=== PATIENT | male | born 1970 | race Caucasian/White ===

== ENCOUNTER 2016-12-14 12:33 | Emergency (ER) | payer OTHER ==
[~2016-12-14] VITALS: Ht 182.9 cm; Wt 65.5 kg
[~2016-12-14 12:33] MED LIST: ALLERGY25 M2 PO; ANTACID650 MG PO; ASPIR 8181 M1 PO; ASPIRIN325 MG PO; CLONIDINE HCL0.1 MG PO; DIAZEPAM5 MG PO; DILANTIN100 MG PO; FOLBEE PLUS TABL5 MG PO; KEPPRA500 MG PO; Keppra PO; LABETALOL HCL200 MG PO; LEXAPRO10 MG PO; LIPITOR20 MG PO; LOPID600 MG PO; NEXIUM40 MG PO; NORCO 5/3251 TABLET PO; PRILOSEC20 MG PO; PROTONIX40 MG PO; SODIUM BICARBO325 M1 PO; ULTRAM50 MG PO; VITAMIN D400 INTUNI PO; Vicodin,Lortab 5/500 PO; Vitamin B-12 PO
[2016-12-14 15:50] VITALS: BP 126/79
== END 2016-12-14 16:15 | disposition home or self-care (01) ==
LOC: EME 12:33
PROC: 05LY0ZZ Occlusion of Upper Vein, Open Approach (ICD-10-PCS; principal; 2016-12-14)
DX: T82.838A Hemorrhage due to vascular prosthetic devices, implants and grafts, initial encounter (principal); Y83.2 Surgical operation with anastomosis, bypass or graft as the cause of abnormal reaction of the patient, or of later complication, without mention of misadventure at the time of the procedure; N18.6 End stage renal disease; Z99.2 Dependence on renal dialysis; Z86.73 Personal history of transient ischemic attack (TIA), and cerebral infarction without residual deficits; R56.9 Unspecified convulsions; Z87.891 Personal history of nicotine dependence
CPT/HCPCS: 99281; 99284

== ENCOUNTER 2016-12-22 07:27 | Day surgery (SDC) | payer OTHER ==
[2016-12-22 09:07] LABS: METH RESISTANT S AUREUS PCR NEGATIVE (NEGATIVE)
[2016-12-22 09:11] LABS: PROBE CHECK PASS; SPECIMEN PROCESSING CONTROL PASS
== END 2016-12-22 10:35 | disposition home or self-care (01) ==
LOC: CATH 07:27
PROVIDERS: Surgery
PROC: 057Y3ZZ Dilation of Upper Vein, Percutaneous Approach (ICD-10-PCS; principal; 2016-12-22)
PROC: 3E03317 Introduction of Other Thrombolytic into Peripheral Vein, Percutaneous Approach (ICD-10-PCS; principal; 2016-12-22)
PROC: B51W1ZZ Fluoroscopy of Dialysis Shunt/Fistula using Low Osmolar Contrast (ICD-10-PCS; principal; 2016-12-22)
PROC: 05HY33Z Insertion of Infusion Device into Upper Vein, Percutaneous Approach (ICD-10-PCS; principal; 2016-12-22)
DX: T82.858A Stenosis of other vascular prosthetic devices, implants and grafts, initial encounter (principal); I12.0 Hypertensive chronic kidney disease with stage 5 chronic kidney disease or end stage renal disease; N18.6 End stage renal disease; Z99.2 Dependence on renal dialysis; I25.10 Atherosclerotic heart disease of native coronary artery without angina pectoris; Z88.0 Allergy status to penicillin; Z79.82 Long term (current) use of aspirin
CPT/HCPCS: 87641; C1725; C1769; C1894; J1200; J1644; J2250; J3010

== ENCOUNTER 2017-06-19 07:05 | Day surgery (SDC) | payer OTHER ==
[2017-06-19 08:58] LABS: METH RESISTANT S AUREUS PCR NEGATIVE (NEGATIVE)
[2017-06-19 09:02] LABS: PROBE CHECK PASS; SPECIMEN PROCESSING CONTROL PASS
== END 2017-06-19 12:50 | disposition home or self-care (01) ==
LOC: CATH 07:05
PROVIDERS: Surgery
PROC: 057Y3DZ Dilation of Upper Vein with Intraluminal Device, Percutaneous Approach (ICD-10-PCS; principal; 2017-06-19)
DX: T82.858A Stenosis of other vascular prosthetic devices, implants and grafts, initial encounter (principal); N18.6 End stage renal disease; Z99.2 Dependence on renal dialysis
CPT/HCPCS: 87641; C1725; C1769; C1874; C1894; J1644; J2250; J3010

== ENCOUNTER 2017-11-21 11:21 | Emergency (ER) | payer OTHER ==
[~2017-11-21] VITALS: Ht 182.9 cm; Wt 75.6 kg
[2017-11-21 13:35] VITALS: BP 140/78
== END 2017-11-21 13:35 | disposition home or self-care (01) ==
LOC: EME 11:21
PROC: 2W3DX1Z Immobilization of Left Lower Arm using Splint (ICD-10-PCS; principal; 2017-11-21)
DX: S62.202A Unspecified fracture of first metacarpal bone, left hand, initial encounter for closed fracture (principal); W01.0XXA Fall on same level from slipping, tripping and stumbling without subsequent striking against object, initial encounter; N28.9 Disorder of kidney and ureter, unspecified; Z88.0 Allergy status to penicillin; Z91.040 Latex allergy status
CPT/HCPCS: 73110; 99281; 99284

== ENCOUNTER → 2017-12-04 | Outpatient (CLI) | payer MEDICARE, OTHER | END | disposition home or self-care (01) | LOC: CDC 11:41 | DX: Z01.810 Encounter for preprocedural cardiovascular examination (principal); S62.242A Displaced fracture of shaft of first metacarpal bone, left hand, initial encounter for closed fracture | CPT/HCPCS: 93000 ==

== ENCOUNTER 2017-12-19 10:59 | Day surgery (SDC) | payer OTHER ==
[~2017-12-19] VITALS: Ht 182.9 cm; Wt 73.0 kg
[2017-12-19 11:51] VITALS: BP 168/80
[2017-12-19 16:18] VITALS: BP 152/72
[2017-12-19 16:53] VITALS: BP 147/68
== END 2017-12-19 17:30 | disposition home or self-care (01) ==
LOC: SDC
PROC: 0PSH04Z Reposition Right Radius with Internal Fixation Device, Open Approach (ICD-10-PCS; principal; 2017-12-19)
DX: S52.571A Other intraarticular fracture of lower end of right radius, initial encounter for closed fracture (principal); W18.30XA Fall on same level, unspecified, initial encounter; Y92.000 Kitchen of unspecified non-institutional (private) residence as the place of occurrence of the external cause; I10 Essential (primary) hypertension; K21.9 Gastro-esophageal reflux disease without esophagitis; Z88.0 Allergy status to penicillin; Z87.891 Personal history of nicotine dependence; Z86.73 Personal history of transient ischemic attack (TIA), and cerebral infarction without residual deficits
CPT/HCPCS: 73100; 76000; 84132; 87641; C1713; J0131; J3010; S0020